=== PATIENT | male | born 1960 ===

== ENCOUNTER 2018-08-14 06:52 | Day surgery (SDC) | payer BC ==
[2018-08-14 07:16] VITALS: BMI 30.7
[2018-08-14] MEDS ORDERED: Lactated Ringer's 500 ML IV ONE ×2 (09:10)
[2018-08-14] MEDS ORDERED: Propofol 10 mg/ml Inj (20 ML) ONE ×2 (09:11→09:25)
--- NOTE | 2018-08-14 09:13 | CP.SDSHP ---
Same Day Surgery H & P - History Proposed Procedure: colonoscopy Pre-Op Diagnosis: screen - Previous Medical/Surgical History Endocrine/Metabolic: Diabetes - Allergies Allergies: Allergies No Known Allergies Allergy (Verified 08/14/18 07:15) - Physical Exam Vital Signs: Vital Signs 08/14/18 07:23 Temperature 97.8 F Pulse Rate 80 Respiratory 16 Rate Blood Pressure 121/65 O2 Sat by Pulse 97 Oximetry Mental Status: Alert & Oriented x3 Neuro: WNL Heart: WNL Lungs: WNL GI: WNL - {Optional Preform as Required} Abdomen: WNL - Impression Impression: colon screen Pt. Evaluated Today:Candidate for Anesthesia & Procedure: Yes - Date & Time Date: 08/14/18 Time: 09:05 Short Stay Discharge - Short Stay Discharge Admitting Diagnosis/Reason for Visit: SCREENING Disposition: HOME/ ROUTINE
[2018-08-14 10:06] VITALS: TEMP 97.5
[2018-08-14 11:01] VITALS: BP 123/74; PULSE 86; RESP 17; O2SAT 95
== END 2018-08-14 10:45 | disposition home or self-care (01) ==
LOC: C.ENDO 06:52
PROVIDERS: ATTEND Internal Medicine Gastroenterology
DX: Z12.11 Encounter for screening for malignant neoplasm of colon (principal); K64.1 Second degree hemorrhoids; A63.0 Anogenital (venereal) warts; E11.9 Type 2 diabetes mellitus without complications; D12.2 Benign neoplasm of ascending colon; D12.3 Benign neoplasm of transverse colon
CPT/HCPCS: 45385; 82948; 88305; J2704; J7120